=== PATIENT | female | born 1995 | race African-American/Black ===

== ENCOUNTER 2018-02-06 19:42 | Emergency (ER) | payer OTHER ==
[2018-02-06 21:52] LABS: ABS Basophils 0 10^3/ul (0-0.2); ABS Eosinophils 0 10^3/ul (0-0.6); ABS Lymphocytes 0.2 10^3/ul (1.0-4.8); ABS Monocytes 0.4 10^3/ul (0-0.8); ABS Neutrophils 13.7 10^3/ul (1.5-7.7); ABS Nucleated RBC 0 10^3/ul; Eosinophil % 0.1 % (0-6); Hematocrit 43 % (35-47); Hemoglobin 15.2 g/dl (12.0-16.0); Lymphocyte % 1.5 % (25-47); Mean Corpuscular HGB Conc 35 g/dl (31-36); Mean Corpuscular Hemoglobin 31 pg (27-31); Mean Corpuscular Volume 87 fL (80-97); Mean Platelet Volume 9.6 um3 (7.4-10.4); Nucleated Red Blood Cells % 0.1; Platelet Count 165 10^3/ul (150-450); Red Blood Count 4.98 10^6/ul (4.0-5.4); Red Cell Distribution Width 13 % (10.5-15); White Blood Count 14.4 10^3/ul (3.5-10.8)
[2018-02-06] MEDS ORDERED: Ondansetron ODT TAB* 4 MG ONE (22:13)
[2018-02-06] MEDS ORDERED: Ondansetron ODT TAB* 4 MG PO ONE (22:14)
[2018-02-06 22:23] LABS: EGFR Non-African American 76.3 (>60)
--- NOTE | 2018-02-07 00:45 | ED ---
GI/ HPI - HPI Summary HPI Summary: Complains of vaginal bleeding daily and weakness/lightheadedness with standing up 1 month, and chills and N/V 2 starting today. Unsure of any vaginal discharge. Patient has seen [facility] [employer] twice for same sx. Started new OCP 6 months ago for heavy menstruation and [employer] has told her at both visits to just continue with OCPs. Patient states bleeding is for about an hour each afternoon , blood sometimes bright red, sometimes brown. Denies fever, abdominal pain, urinary symptoms, vaginal pain with intercourse, - History of Current Complaint Chief Complaint: EDAbdPain Time Seen by Provider: 02/06/18 21:04 Stated Complaint: VOMITING/FEVER Hx Last Menstrual Period: 06/19/16 Onset/Duration: Started Weeks Ago Timing: Intermittent Severity: Mild Vaginal Bleeding Description: Bright Red, Brownish-Red Pain Intensity: 6 - Allergy/Home Medications Allergies/Adverse Reactions: Allergies Allergy/AdvReac Type Severity Reaction Status Date / Time No Known Allergies Allergy Verified 06/08/16 16:02 Home Medications: Home Medications Norethindrone (NF) [Chastity (NF)] 0.35 mg PO DAILY 02/06/18 [History Confirmed 02/06/18] PMH/Surg Hx/FS Hx/Imm Hx Endocrine/Hematology History: Denies: Hx Diabetes, Hx Thyroid Disease Cardiovascular History: Denies: Hx Hypertension Respiratory History: Denies: Hx Asthma, Hx Chronic Obstructive Pulmonary Disease (COPD) GI History: Denies: Hx Ulcer Psychiatric History: Reports: Hx Anxiety - Surgical History Surgery Procedure, Year, and Place: wisdom teeth; ACL left knee Infectious Disease History: No Infectious Disease History: Denies: Hx Clostridium Difficile, Hx Hepatitis, Hx Human Immunodeficiency Virus (HIV), Hx of Known/Suspected MRSA, Hx Shingles, Hx Tuberculosis, Hx Known/ Suspected VRE, Hx Known/Suspected VRSA, History Other Infectious Disease, Traveled Outside the [place] in Last 30 Days - Family History Known Family History: Positive: Hypertension, Diabetes - Social History Alcohol Use: Rare Substance Use Type: Reports: Marijuana Substance Use Comment - Amount & Last Used: OCCASIONALLY Smoking Status (MU): Light Every Day Tobacco Smoker Type: Cigarettes Amount Used/How Often: 5 CIG/DAY Review of Systems Constitutional: Negative Eyes: Negative ENT: Negative Cardiovascular: Negative Respiratory: Negative Gastrointestinal: Negative Genitourinary: Negative Musculoskeletal: Negative Skin: Negative Neurological: Negative Psychological: Normal All Other Systems Reviewed And Are Negative: Yes Physical Exam Triage Information Reviewed: Yes Vital Signs On Initial Exam: Initial Vitals Temp Pulse Resp BP Pulse Ox 97.1 F 94 16 124/77 99 02/06/18 19:55 02/06/18 19:55 02/06/18 19:55 02/06/18 19:55 02/06/18 19:55 Vital Signs Reviewed: Yes Appearance: Positive: Well-Appearing Skin: Positive: Warm Head/Face: Positive: Normal Head/Face Inspection Eyes: Positive: Normal Neck: Positive: Supple Respiratory/Lung Sounds: Positive: Clear to Auscultation Cardiovascular: Positive: Normal Abdomen Description: Positive: Nontender Pelvic Exam: Positive: External Exam Normal, Speculum Exam Normal, Bimanual Exam Normal, No Cerv. Motion Tender, No Masses, Blood. Negative: Active Bleeding, Discharge, Lesions, Mass, Tender w/ Cervical Motion, Tender Adnexa, Tender Uterus, Ulcers Musculoskeletal: Positive: Normal Neurological: Positive: Normal Psychiatric: Positive: Normal AVPU Assessment: Alert - Jodi Coma Scale Best Eye Response: 4 - Spontaneous Best Motor Response: 6 - Obeys Commands Best Verbal Response: 5 - Oriented Coma Scale Total: 15 Diagnostics - Vital Signs Vital Signs Temp Pulse Resp BP Pulse Ox 02/06/18 22:44 92 115/88 99 02/06/18 22:14 87 133/85 100 02/06/18 22:00 84 95 02/06/18 21:44 74 125/78 100 02/06/18 21:14 85 124/83 97 02/06/18 21:13 81 97 02/06/18 19:55 97.1 F 94 16 124/77 99 - Laboratory Lab Results: Lab Results 02/06/18 02/06/18 02/06/18 Range/Units 21:42 21:42 21:42 WBC 14.4 H (3.5-10.8) 10^3/ul RBC 4.98 (4.0-5.4) 10^6/ul Hgb 15.2 (12.0-16.0) g/dl Hct 43 (35-47) % MCV 87 (80-97) fL MCH 31 (27-31) pg MCHC 35 (31-36) g/dl RDW 13 (10.5-15) % Plt Count 165 (150-450) 10^3/ul MPV 9.6 (7.4-10.4) um3 Neut % (Auto) 95.2 H (38-83) % Lymph % (Auto) 1.5 L (25-47) % [place] % (Auto) 2.9 (0-7) % Eos % (Auto) 0.1 (0-6) % Baso % (Auto) 0.3 (0-2) % Absolute Neuts (auto) 13.7 H (1.5-7.7) 10^3/ul Absolute Lymphs (auto) 0.2 L (1.0-4.8) 10^3/ul Absolute Monos (auto) 0.4 (0-0.8) 10^3/ul Absolute Eos (auto) 0 (0-0.6) 10^3/ul Absolute Basos (auto) 0 (0-0.2) 10^3/ul Absolute Nucleated RBC 0 10^3/ul Nucleated RBC % 0.1 Sodium 137 L (139-145) mmol/L Potassium 4.9 (3.5-5.0) mmol/L Chloride 104 (101-111) mmol/L Carbon Dioxide 29 (22-32) mmol/L Anion Gap 4 (2-11) mmol/L BUN 16 (6-24) mg/dL Creatinine 0.92 (0.51-0.95) mg/dL Est GFR ( Amer) 98.2 (>60) Est GFR (Non-Af Amer) 76.3 (>60) BUN/Creatinine Ratio 17.4 (8-20) Glucose 103 H (70-100) mg/dL Lactic Acid 0.9 (0.5-2.0) mmol/L Calcium 9.8 (8.6-10.3) mg/dL Total Bilirubin 1.10 H (0.2-1.0) mg/dL AST 17 (13-39) U/L ALT 11 (7-52) U/L Alkaline Phosphatase 37 (34-104) U/L C-Reactive Protein 2.89 (< 5.00) mg/L Total Protein 6.9 (6.4-8.9) g/dL Albumin 4.6 (3.2-5.2) g/dL Globulin 2.3 (2-4) g/dL Albumin/Globulin Ratio 2.0 (1-3) Lipase 18 (11.0-82.0) U/L Beta HCG, Quant 0.62 mIU/mL Result Diagrams: 02/06/18 21:42 02/06/18 21:42 Lab Statement: Any lab studies that have been ordered have been reviewed, and results considered in the medical decision making process. GIGU Course/Dx - Diagnoses Provider Diagnoses: Vaginal bleeding Discharge - Sign-Out/Discharge Documenting (check all that apply): Discharge/Admit/Transfer - Discharge Plan Condition: Stable Disposition: HOME Patient Education Materials: Dysfunctional Uterine Bleeding (ED) Forms: *Work Release Referrals: Mick Marroquin MD [Primary Care Provider] - Additional Instructions: Follow-up with her [employer]. Return to the ED for any new or worsening symptoms - Billing Disposition and Condition Condition: STABLE Disposition: HOME
[2018-02-07 00:52] LABS: Urine Appearance Clear; Urine Blood 1+ (Negative); Urine Color Amber; Urine Ketones 2+ (Negative); Urine Protein 2+(100 mg/dL) (Negative); Urine Specific Gravity 1.031 (1.010-1.030); Urine Urobilinogen Positive (Negative)
[2018-02-07 02:36] VITALS: BP 122/78
== END 2018-02-07 02:40 | disposition home or self-care (01) ==
LOC: ED 19:42
DX: N93.9 Abnormal uterine and vaginal bleeding, unspecified (principal); Z32.02 Encounter for pregnancy test, result negative; F41.9 Anxiety disorder, unspecified; F17.210 Nicotine dependence, cigarettes, uncomplicated
CPT/HCPCS: 36415; 80053; 81003; 81015; 83605; 83690; 84702; 85025; 86140; 87086; 99283; A9270-GY

== ENCOUNTER 2024-08-02 10:12 | Inpatient (IN) ==
[2024-08-02] MEDS: Lactated Ringers 1000 ml BAG 1,000 ML IV ONE ×2 (11:00→13:26)
[2024-08-02] MEDS ORDERED: Nalbuphine 10 MG/ML 1 ML VIAL IV PRN (11:26)
[2024-08-02] MEDS ORDERED: Lidocaine 1% VIAL 10 MG/ML 30 ML VIAL INJ PRN (11:26)
[2024-08-02 11:51] LABS: ABS Eosinophils 0.1 10^3/uL (0.0-0.5); ABS Lymphocytes 2.3 10^3/uL (1.0-4.8); ABS Neutrophils 12.3 10^3/uL (1.5-7.6); ABS Nucleated RBC 0.02 10^3/ul; Eosinophil % 0.5 %; Hemoglobin 11.9 g/dL (11.5-14.3); Lymphocyte % 14.5 %; Mean Corpuscular Hemoglobin 28.1 pg (27-33); Mean Corpuscular Volume 85.1 fL (80-97); Mean Platelet Volume 10.6 fL (7.5-11.2); Nucleated Red Blood Cells % 0.2 %/100WBC (0.0-0.8); Platelet Count 182 10^3/uL (150-450); Red Blood Count 4.23 10^6/uL (3.63-4.92); White Blood Count 15.7 10^3/uL (3.8-11.8)
[2024-08-02 12:18] LABS: Albumin 4.1 g/dL (3.2-5.2); Albumin/Globulin Ratio 1.3 (1-3); Calcium 9.9 mg/dL (8.6-10.3); Creatinine, Serum 0.74 mg/dL (0.51-0.95); Globulin 3.2 g/dL (2-4); Potassium 4.1 mmol/L (3.5-5.0); Total Bilirubin 0.5 mg/dL (0.2-1.0); Total Protein 7.3 g/dL (6.4-8.9); eGFR CKD-EPI 112.9 (>60)
[2024-08-02] MEDS ORDERED: Phenylephrine 40 mcg/mL 10mL (400mcg) SYRINGE IV PUSH PRN ×2 (12:33)
[2024-08-02] MEDS ORDERED: Sodium Citrate/Citric Acid LIQ 15 ML UDC PO PRN (12:33)
[2024-08-02] MEDS: OBEPIDURAL (200 ML) 200 ML EPIDURAL SCH (13:24)
[2024-08-02] MEDS: Lidocaine/Epinephrin 1.5%/200 5 ML AMP INJ ONE (13:25)
[2024-08-02] MEDS: OBEPIDURAL (200 ML) 200 ML EPIDURAL ONE (13:25)
[2024-08-02] MEDS: Buffered Lidocaine 1% SYRIN 1 ml INTRADERM ONE (13:25)
[2024-08-02] MEDS: Lactated Ringers 1000 ml BAG 1,000 ML IV SCH (13:25)
[2024-08-02 15:07] LABS: Urine Appearance Clear; Urine Bilirubin Negative (Negative); Urine Blood Negative (Negative); Urine Color Yellow; Urine Glucose Negative (Negative); Urine Ketones 2+ (Negative); Urine Nitrite Negative (Negative); Urine Protein Trace (Negative); Urine Specific Gravity 1.025 (1.002-1.030); Urine Urobilinogen Negative (Negative); Urine pH 7.5 (5.0-8.0)
[2024-08-02 15:21] LABS: Urine Benzodiazepine Screen None Detected (None Detect); Urine Cannabinoids Screen Presumptive Positive (None Detect); Urine Opiates Screen None Detected (None Detect)
[2024-08-02] MEDS ORDERED: Glycerin ADULT 2.4 gm SUPP PR PRN (20:11)
[2024-08-02] MEDS: Dibucaine 1% OINT 28.35 GM TUBE PR PRN (20:59)
[2024-08-02] MEDS: Witch Hazel PAD JAR TOPICAL PRN (20:59)
[2024-08-02] MEDS ORDERED: Lactated Ringers 1000 ml BAG 1,000 ML IV SCH (21:00)
[2024-08-03 06:57] LABS: ABS Basophils 0.1 10^3/uL (0.0-0.1); ABS Lymphocytes 1.6 10^3/uL (1.0-4.8); ABS Monocytes 1.3 10^3/uL (0.0-0.9); ABS Neutrophils 16.9 10^3/uL (1.5-7.6); Eosinophil % 0.1 %; Mean Corpuscular Hemoglobin 28.1 pg (27-33); Mean Corpuscular Hgb Conc 34.6 g/dL (31-36); Mean Platelet Volume 10.2 fL (7.5-11.2); Platelet Count 159 10^3/uL (150-450); Red Blood Count 3.57 10^6/uL (3.63-4.92); Red Cell Distribution Width 14.5 % (12-17); White Blood Count 19.8 10^3/uL (3.8-11.8)
[2024-08-03] MEDS: Oxytocin in LR 20,000 MILLI.UNIT/1,000 ML BAG IV SCH ×2 (19:09→19:10)
[2024-08-03] MEDS: Phenylephrine 40 mcg/mL 10mL (400mcg) SYRINGE ONE (19:09)
[2024-08-03] MEDS: Lactated Ringers 1000 ml BAG 1,000 ML IV SCH (19:10)
[2024-08-04 08:20] VITALS: BP 128/85
== END 2024-08-04 13:37 | disposition home or self-care (01) | DRG 776 ==
LOC: MCHOBOUT 10:12 → MCHOB 11:09
PROVIDERS: ADMIT Advanced Practice Midwife; ATTEND Advanced Practice Midwife